=== PATIENT | female | born 1990 | race Caucasian/White ===

== ENCOUNTER 2016-12-20 21:34 | Outpatient (CLI) | payer OTHER ==
[2016-12-21] MEDS ORDERED: IRON325 MG PO (20:09)
[2016-12-21] MEDS ORDERED: PRENATAL VITAMINS PO (20:09)
[2016-12-21] MEDS ORDERED: VITAMIN B-1250 MCG PO (20:11)
== END 2016-12-20 23:00 | disposition home or self-care (01) ==
LOC: OBC SRH 21:34 → OB SRH 21:34 → OBC SRH 23:00
PROC: 4A0HXCZ Measurement of Products of Conception, Cardiac Rate, External Approach (ICD-10-PCS; principal; 2016-12-20)
DX: O47.1 False labor at or after 37 completed weeks of gestation (principal); O48.0 Post-term pregnancy; Z3A.41 41 weeks gestation of pregnancy
CPT/HCPCS: 40003

== ENCOUNTER 2016-12-21 18:48 | Inpatient (IN) | payer OTHER ==
[~2016-12-21] VITALS: Ht 167.6 cm; Wt 81.6 kg
[2016-12-21] MEDS ORDERED: IRON325 MG PO (20:09)
[2016-12-21] MEDS ORDERED: PRENATAL VITAMINS PO (20:09)
[2016-12-21] MEDS ORDERED: VITAMIN B-1250 MCG PO (20:11)
[2016-12-22] VITALS (14 sets, daily range): BP systolic 103–117; BP diastolic 53–74
--- NOTE | 2016-12-22 09:00 | NUR ---
Dr Peralta made round this AM. New orders for Fleets enema OR, May repeat x1 for constipation noted.
--- NOTE | 2016-12-22 11:00 | NUR ---
Pt was handed Fleets enema kit, Saline one & Pt will do it by herself per her request noted.
--- NOTE | 2016-12-22 16:41 | NUR ---
Patient asleep since 1500 and does not her awakened for vital signs
--- NOTE | 2016-12-22 18:44 | NUR ---
DR. Peralta in to round on patient. Orders noted
[2016-12-23 01:00] VITALS: BP 106/64
--- NOTE | 2016-12-23 02:18 | NUR ---
Pt. up in room w/o difficulty. Up to void, ashley care and pad change per self. No distress noted. C/O cramping. Medicated as ordered and requested for discomfort. Will continue to monitor pt. status.
--- NOTE | 2016-12-23 06:38 | Progress Note ---
Late Entry Date/Time Late Entry Date and Time LATE ENTRY Date of visit: 12/22/2016 Time of visit: 12/23/2016 Subjective General Persistent cramping cointrolled with toradol. Breast feeding. Moderate lochia. Physical Exam Vital Signs / I&Os Vital Signs Date Time Temp Pulse Resp B/P Pulse O2 O2 Flow FiO2 Ox Delivery Rate 12/23 0628 97.9 12/23 0100 97.9 65 20 106/64 12/22 2112 97.9 68 18 103/69 100 12/22 1750 97.9 68 18 108/74 99 12/22 1746 Room Air 12/22 0845 98.1 67 18 115/69 I&O 12/22 0800 12/22 1600 12/23 0000 Intake Total 362 1100 Output Total 250 0 Balance 112 1100 General Appearance Alert, Oriented X3, Cooperative, No acute distress Lungs Clear to auscultation Cardiovascular Regular rate and rhythm Abdomen Normal bowel sounds, Soft, No tenderness Extremities No edema Skin No Rashes Assessment and Plan Problem List 1. Normal labor Plan Normal delicery 2. care following vaginal delivery Plan Continue toradol.
--- NOTE | 2016-12-23 06:43 | Provider's Discharge Care Plan ---
Problem, Goal, Plan Problem List 1. Normal labor Goals: Improved health/wellness Instructions: Routine care 2. care following vaginal delivery Goals: Improved health/wellness Instructions: Follow up as directed, Pelvic rest. control as discussed.
[2016-12-23] MEDS ORDERED: IBUPROFEN600 MG PO (07:00)
--- NOTE | 2016-12-23 07:53 | NUR ---
Assumed care, report from STALIN Rosas. Pt. sleeping. I went in to give Toradol dose as requested and asked me to wait until pt. awake. Planning to DC home after breakfast.
[2016-12-23 10:55] VITALS: BP 116/75
--- NOTE | 2016-12-23 12:07 | NUR ---
pt. dc to home after discharge teaching done. all questions answered. No further needs. Pt. walked to car, refused wheelchair.
--- NOTE | 2017-01-01 13:18 | DELIVERY SUMMARY ---
DELIVERY DATE: 12/21/2016 ATTENDING PHYSICIAN/PROVIDER: Karan Peralta MD PREOPERATIVE DIAGNOSIS: 1. Term intrauterine in labor POSTOPERATIVE DIAGNOSIS: 1. Term intrauterine in labor PROCEDURE: 1. Vaginal delivery INDICATIONS: Normal spontaneous vaginal delivery. ANESTHESIA: Epidural. COMPLICATIONS: None. ESTIMATED BLOOD LOSS: 300 mL CONDITION: Stable post-delivery. Placenta delivered intact with cervix intact and vaginal sidewalls intact. SUMMARY: The patient presented to [facility] in labor. She is 4, para 4, SAB zero, EAB 0, estimated date of confinement 04/12/2017. history was uncomplicated and she was followed in my office for care. On presentation, she was 5-6 cm dilated with bulging bag of water. She requested epidural anesthesia, which was initiated. She progressed steadily through labor, bag of water was ruptured with AROM at 2130 on 12/21 2016. She progressed to complete and had a normal second stage with pushing and descent of the head. A vigorous infant was born, Apgars 9 and 9
== END 2016-12-23 11:55 | disposition home or self-care (01) | DRG 560 ==
LOC: OBC SRH 18:48 → OB SRH 18:51 → OBC SRH 19:14 → OB SRH 19:15
PROVIDERS: ADMIT Family Medicine
PROC: 10E0XZZ Delivery of Products of Conception, External Approach (ICD-10-PCS; principal; 2016-12-21)
DX: O48.0 Post-term pregnancy (principal); Z37.0 Single live birth; O99.824 Streptococcus B carrier state complicating childbirth; Z3A.41 41 weeks gestation of pregnancy
CPT/HCPCS: 40012; 82221; 90074; 91295; 95059